=== PATIENT | male | born 1995 | race Caucasian/White ===

== ENCOUNTER 2016-11-06 16:56 | Emergency (ER) | payer BC ==
[~2016-11-06] VITALS: Ht 185.4 cm; Wt 97.4 kg
[2016-11-06] MEDS ORDERED: LORAZEPAM 2 MG/ML 1 ML VIAL IV STA (17:15)
[2016-11-06] MEDS ORDERED: SODIUM CHLORIDE 0.9% 1000ML 2,000 ML IV STA (17:15)
[2016-11-06 17:24] VITALS: TEMP 36.7; Ht 185.4 cm; Wt 97.4 kg
--- NOTE | 2016-11-06 17:52 | DIAGNOSTIC IMAGING REPORT ---
CHEST ONE VIEW PORTABLE CLINICAL HISTORY: Altered mental status. Weakness. COMPARISON STUDY: No previous studies for comparison. FINDINGS: Lung volumes are normal. Lungs are clear. There is no pneumothorax or pleural effusion. Cardiac size is normal. Mediastinal contours are normal. There is no evidence of pulmonary edema. IMPRESSION: No acute cardiopulmonary findings. Electronically signed by: Papo Zuleta M.D. 11/06/2016 5:51 PM Dictated Date/Time: 11/06/2016 5:51 PM
--- NOTE | 2016-11-06 18:01 | EMERGENCY ROOM VISIT NOTE ---
History Report prepared by Surya: Kayleigh Benrard Under the Supervision of: Dr. Zachary Messina M.D. First contact with patient: 17:09 Chief Complaint: SEIZURE Stated Complaint: SEIZURE History of Present Illness The patient is a 21 year old male who presents to the Emergency Room with complaints of an episode of seizure activity occurring just prior to arrival. The patient states that he has been very stressed lately from multiple exams this week at school and that he is very sleep deprived. The patient states that he took a hit of tobacco from a water pipe and got an immediate head duque. He does note he has been smoking tobacco for 3 years and has never had a side effect before. The patient states he stood up after smoking and felt everything slow down to be [id number]. He does have anxiety and notes this felt similar to an anxiety attack he has had in the past. The patient then walked into his friend's room and collapsed to the ground. He began to have seizure activity and did bite his tongue. After 1 minute the seizure activity stopped. He notes that he only remembers walking into his friend's room and then being put onto the stretcher by EMS. The patient has been drinking a lot of coffee and taking Adderall this week which is not his prescription. He notes that he does feel dehydrated. The patient notes that right before the seizure activity he experienced shortness of breath and lightheadedness. This has since resolved and he is currently experiencing nausea and left sided chest pain. The patient denies seizure activity before, family history of seizures, neck pain, or abdominal pain. 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 A total of 10 systems reviewed and were otherwise negative. Past Medical & Surgical Medical Problems: (1) Anxiety attack Family History Hypertension Social History Smoking Status: Light Tobacco Smoker Drug Use: marijuana Marital Status: single Housing Status: lives with roommate Occupation Status: [employer] student Allergies Coded Allergies: No Known Allergies (Unverified , 11/02/13) Physical Exam Vital Signs Date Time Temp Pulse Resp B/P Pulse Ox O2 Delivery O2 Flow Rate FiO2 11/06/16 20:51 92 18 156/81 98 Room Air 11/06/16 18:38 87 164/81 102 165/78 98 160/114 11/06/16 18:35 165/78 160/114 11/06/16 18:34 164/81 11/06/16 18:26 78 17 11/06/16 18:00 161/82 11/06/16 17:56 89 14 96 11/06/16 17:30 149/84 11/06/16 17:26 94 22 100 11/06/16 17:24 36.7 100 18 135/75 99 Room Air 11/06/16 17:07 96 11/06/16 17:02 135/75 Physical Exam GENERAL: Patient is in no acute distress. HEENT: No acute trauma, normocephalic atraumatic, mucous membranes moist, no nasal congestion, no scleral icterus. Dried blood on lips with subtle tongue bite on left side with no laceration repair required. NECK: No stridor, no adenopathy, no meningismus, trachea is midline. LUNGS: Clear to auscultation bilaterally, no wheeze, no rhonchi, breath sounds equal. HEART: Tachycardic with a regular rhythm no murmurs. CHEST: Tender to palpation to the left lateral chest wall. ABDOMEN: Soft, nontender, bowel sounds positive, no hernias, no peritonitis. EXTREMITIES: No cyanosis or edema, full range of motion of all the joints without pain or difficulty, no signs for acute trauma. NEUROLOGIC: Oriented x 3, no acute motor or sensory deficits, no focal weakness. SKIN: No rash, no jaundice, no diaphoresis. Medical Decision & Procedures ER Provider Diagnostic Interpretation: X ray results and stated below per my interpretation and radiologist interpretation. Other radiology results and stated below per my review and radiologist interpretation: CT OF THE HEAD WITHOUT CONTRAST CLINICAL HISTORY: Seizure. Altered mental status. COMPARISON STUDY: No previous studies for comparison. CT DOSE: 614.27 mGy.cm TECHNIQUE: Helical axial images of the head were obtained without IV contrast. Automated exposure control was utilized for the study. FINDINGS: No acute intracranial hemorrhage, midline shift or mass effect is present. Brain volume is normal. Ventricular system is normal. Basilar cisterns are patent. There are no extra-axial collections. Arizmendi-white differentiation is maintained. There are no findings to suggest acute dural sinus thrombosis or acute territorial infarct. There is no calvarial fracture. There are post surgical finding within the sinuses. IMPRESSION: No acute intracranial findings. Electronically signed by: Papo Zuleta M.D. 11/06/2016 7:28 PM Dictated Date/Time: 11/06/2016 7:24 PM CHEST ONE VIEW PORTABLE CLINICAL HISTORY: Altered mental status. Weakness. COMPARISON STUDY: No previous studies for comparison. FINDINGS: Lung volumes are normal. Lungs are clear. There is no pneumothorax or pleural effusion. Cardiac size is normal. Mediastinal contours are normal. There is no evidence of pulmonary edema. IMPRESSION: No acute cardiopulmonary findings. Electronically signed by: Papo Zuleta M.D. 11/06/2016 5:51 PM Dictated Date/Time: 11/06/2016 5:51 PM Laboratory Results 11/06/16 17:00 Red Blood Count 4.82, Mean Corpuscular Volume 93.2, Mean Corpuscular Hemoglobin 33.2, Mean Corpuscular Hemoglobin Concent 35.6, Mean Platelet Volume 10.0, Neutrophils (%) (Auto) 56.8, Lymphocytes (%) (Auto) 32.9, Monocytes (%) (Auto) 7.1, Eosinophils (%) (Auto) 1.6, Basophils (%) (Auto) 0.4, Neutrophils # (Auto) 5.24, Lymphocytes # (Auto) 3.04, Monocytes # (Auto) 0.66, Eosinophils # (Auto) 0.15, Basophils # (Auto) 0.04 11/06/16 17:00 Test 11/06/16 17:00 11/06/16 18:23 11/06/16 20:20 White Blood Count 9.24 K/uL (4.8-10.8) Red Blood Count 4.82 M/uL (4.7-6.1) Hemoglobin 16.0 g/dL (14.0-18.0) Hematocrit 44.9 % (42-52) Mean Corpuscular Volume 93.2 fL (80-100) Mean Corpuscular Hemoglobin 33.2 pg (25-34) Mean Corpuscular Hemoglobin Concent 35.6 g/dl (32-36) Platelet Count 251 K/uL (130-400) Mean Platelet Volume 10.0 fL (7.4-10.4) Neutrophils (%) (Auto) 56.8 % Lymphocytes (%) (Auto) 32.9 % Monocytes (%) (Auto) 7.1 % Eosinophils (%) (Auto) 1.6 % Basophils (%) (Auto) 0.4 % Neutrophils # (Auto) 5.24 K/uL (1.4-6.5) Lymphocytes # (Auto) 3.04 K/uL (1.2-3.4) Monocytes # (Auto) 0.66 K/uL (0.11-0.59) Eosinophils # (Auto) 0.15 K/uL (0-0.5) Basophils # (Auto) 0.04 K/uL (0-0.2) RDW Standard Deviation 42.8 fL (36.4-46.3) RDW Coefficient of Variation 12.6 % (11.5-14.5) Immature Granulocyte % (Auto) 1.2 % Immature Granulocyte # (Auto) 0.11 K/uL (0.00-0.02) Anion Gap 22.0 mmol/L (3-11) Est Creatinine Clear Calc Drug Dose 101.7 ml/min Estimated GFR () 82.1 Estimated GFR (Non- 70.8 BUN/Creatinine Ratio 8.7 (10-20) Calcium Level 9.1 mg/dl (8.5-10.1) Magnesium Level 2.4 mg/dl (1.8-2.4) Total Bilirubin 0.3 mg/dl (0.2-1) Aspartate Amino Transf (AST/SGOT) 27 U/L (15-37) Alanine Aminotransferase (ALT/SGPT) 36 U/L (12-78) Alkaline Phosphatase 89 U/L (45-117) Total Creatine Kinase 326 U/L (39-308) Troponin I < 0.015 ng/ml (0-0.045) Total Protein 8.1 gm/dl (6.4-8.2) Albumin 4.5 gm/dl (3.4-5.0) Globulin 3.6 gm/dl (2.5-4.0) Albumin/Globulin Ratio 1.3 (0.9-2) Thyroid Stimulating Hormone (TSH) 1.080 uIu/ml (0.300-4.500) Ethyl Alcohol mg/dL < 3.0 mg/dl (0-3) Urine Color YELLOW Urine Appearance CLEAR (CLEAR) Urine pH 6.0 (4.5-7.5) Urine Specific [place] 1.003 (1.000-1.030) Urine Protein NEG (NEG) Urine Glucose (UA) NEG (NEG) Urine Ketones TRACE (NEG) Urine Occult Blood NEG (NEG) Urine Nitrite NEG (NEG) Urine Bilirubin NEG (NEG) Urine Urobilinogen NEG (NEG) Urine Leukocyte Esterase NEG (NEG) Urine Opiates Screen NEG (NEG) Urine Methadone, Qualitative NEG (NEG) Urine Barbiturates NEG (NEG) Urine Phencyclidine (PCP) Level NEG (NEG) Ur Amphetamine/Methamphetamine NEG (NEG) MDMA (Ecstasy) Screen NEG (NEG) Urine Benzodiazepines Screen NEG (NEG) Urine Cocaine Metabolite NEG (NEG) Urine Marijuana (THC) NEG (NEG) Laboratory results reviewed by me. Medications Administered Medications (Trade) Dose Ordered Sig/Luz Route Start Time Stop Time Status Last Admin Dose Admin Sodium Chloride (Nss 1000ml) 2,000 ml @ 999 mls/hr Q2H1M STAT IV 11/06/16 17:15 11/06/16 19:15 DC 11/06/16 17:15 999 MLS/HR Lorazepam (Ativan Inj) 1 mg NOW STAT IV 11/06/16 17:15 11/06/16 17:21 DC 11/06/16 18:25 1 MG ECG Indication: other (seizure) Rate (beats per minute): 84 Rhythm: normal sinus Findings: no acute ischemic change, no ectopy, other (mild LVH) ED Course 1712: The patient was evaluated in room C5. A complete history and physical exam was performed. 1715: Ativan Inj 1 mg IV, Sodium Chloride 2,000 ml @ 999 mls/hr IV. 1855: Orthostatic vitals are negative. 2004: I spoke with Dr. Santiago Gutierrez Neurology about the patient. The patient does not need anti seizure medications. He is to follow up in the office and cannot drive. Patient is recommended to stop taking Adderall and to sleep properly. 2019: I reevaluated the patient. I spoke with him about following up with Dr. Santiago Gutierrez Neurology. 2028: Reevaluated the patient. Discussed results and discharge instructions: He verbalized understanding and agreement. The patient is ready for discharge. Medical Decision The patient is a 21 year old male who presents to the ED with complaints of seizure activity. Differential diagnoses considered include exhaustion, dehydration, elicit drug use, seizure, syncope with seizure, electrolyte imbalance, anemia, dysrhythmia, intracranial bleeding. There is no leukocytosis or concerning anemia. No significant electrolyte abnormality, kidney failure or hepatitis. EKG shows a normal sinus rhythm, no acute ischemia. Cardiac enzyme testing times one is not consistent with acute cardiac injury. Total CK is not elevated making rhabdomyolysis unlikely. Chest film shows no pneumonia, pneumothorax or CHF. Brain CT shows no acute bleed or mass effect. Orthostatic vital signs were negative. Urinalysis does not show infection. Urine tox is negative, alcohol level is undetectable. The patient appears to be in a euthyroid state. The patient was given IV Ativan and IV saline, he feels significantly better. I discussed this case with the on-call neurologist. The patient cannot drive, he is not in need of antiseizure medication but does need follow-up and eventual clearance to return to driving. The patient was told to avoid Adderall and any stimulants. He needs to sleep and be sure to get the proper amount of rest. The patient was encouraged to return for any return of symptoms. His event today may have been related to his recent increased stress , fatigue and stimulant use. Consults Time Called: 2001 Consulting Physician: Dr. Henderson - Neurology Returned Call: [address] Henderson - Neurology about the patient. The patient does not need anti seizure medications. He is to follow up in the office and cannot drive. Patient is recommended to stop taking Adderall and to sleep properly. Impression Primary Impression: Seizure-like activity Additional Impressions: Exhaustion Dehydration Scribe Attestation The scribe's documentation has been prepared under my direction and personally reviewed by me in its entirety. I confirm that the note above accurately reflects all work, treatment, procedures, and medical decision making performed by me. Departure Information Dispostion Home / Self-Care Referrals [facility] (PCP) Forms HOME CARE DOCUMENTATION FORM, IMPORTANT VISIT INFORMATION, School Instructions Patient Instructions My [facility] Additional Instructions proper sleep--8 hours per night no stimulants, heavy caffeine, energy drinks or Adderal stay well hydrated call and set up neurology appt--call in the am return if worsening tylenol for pain you cannot drive until given clearance by neurology Problem Qualifiers
[2016-11-06 18:10] LABS: BASO % 0.4 %; BASO ABS # 0.04 K/uL (0-0.2); COMPLETE YES; EOS % 1.6 %; HEMATOCRIT 44.9 % (42-52); IG% 1.2 %; LYMPH % 32.9 %; LYMPH ABS # 3.04 K/uL (1.2-3.4); MEAN CELL VOLUME 93.2 fL (80-100); MEAN CORPUSCULAR HEMOGLOBIN 33.2 pg (25-34); MEAN CORPUSCULAR HGB CONC 35.6 g/dl (32-36); MONO % 7.1 %; NEUT % 56.8 %; PLATELET COUNT 251 K/uL (130-400); RED BLOOD COUNT 4.82 M/uL (4.7-6.1); WHITE BLOOD COUNT 9.24 K/uL (4.8-10.8)
[2016-11-06 18:15] LABS: ALT/SGPT 36 U/L (12-78); BLOOD UREA NITROGEN 12 mg/dl (7-18); BUN/CREATININE RATIO 8.7 (10-20); CALCIUM 9.1 mg/dl (8.5-10.1); CARBON DIOXIDE 13 mmol/L (21-32); CHLORIDE 104 mmol/L (98-107); GLUCOSE 106 mg/dl (70-99); MAGNESIUM 2.4 mg/dl (1.8-2.4); POTASSIUM 3.8 mmol/L (3.5-5.1); SODIUM 139 mmol/L (136-145)
[2016-11-06 18:26] LABS: ALB/GLOB RATIO 1.3 (0.9-2); ALKALINE PHOSPHATASE 89 U/L (45-117); AST/SGOT 27 U/L (15-37)
--- NOTE | 2016-11-06 19:30 | DIAGNOSTIC IMAGING REPORT ---
CT OF THE HEAD WITHOUT CONTRAST CLINICAL HISTORY: Seizure. Altered mental status. COMPARISON STUDY: No previous studies for comparison. CT DOSE: 614.27 mGy.cm TECHNIQUE: Helical axial images of the head were obtained without IV contrast. Automated exposure control was utilized for the study. FINDINGS: No acute intracranial hemorrhage, midline shift or mass effect is present. Brain volume is normal. Ventricular system is normal. Basilar cisterns are patent. There are no extra-axial collections. Arizmendi-white differentiation is maintained. There are no findings to suggest acute dural sinus thrombosis or acute territorial infarct. There is no calvarial fracture. There are post surgical finding within the sinuses. IMPRESSION: No acute intracranial findings. Electronically signed by: Papo Zuleta M.D. 11/06/2016 7:28 PM Dictated Date/Time: 11/06/2016 7:24 PM
[2016-11-06 20:35] LABS: URINE APPEARANCE CLEAR (CLEAR); URINE BILIRUBIN NEG (NEG); URINE COLOR YELLOW; URINE NITRITE NEG (NEG); URINE SPECIFIC GRAVITY 1.003 (1.000-1.030); UROBILINOGEN NEG (NEG); ZZUR CULT IF INDIC CLEAN CATCH NO
[2016-11-06 20:36] LABS: MANUAL MICROSCOPIC REQUIRED? NO; REVIEW REQ? NO
[2016-11-06 20:51] VITALS: BP 156/81; PULSE 92; O2SAT 98
[2016-11-06 20:57] LABS: BENZODIAZEPINE, URINE NEG (NEG); COCAINE,URINE NEG (NEG); PHENCYCLIDINE, URINE NEG (NEG)
== END 2016-11-06 21:19 | disposition home or self-care (01) ==
LOC: EDBD 16:56 → C.EDC 16:57
DX: R56.9 Unspecified convulsions (principal); R53.83 Other fatigue; E86.0 Dehydration; F17.210 Nicotine dependence, cigarettes, uncomplicated; F12.10 Cannabis abuse, uncomplicated

== ENCOUNTER → 2016-12-12 | Outpatient (CLI) | payer BC ==
--- NOTE | 2016-12-12 15:18 | DIAGNOSTIC IMAGING REPORT ---
MRI OF THE BRAIN WITHOUT AND WITH IV CONTRAST SEIZURE PROTOCOL CLINICAL HISTORY: Seizure. COMPARISON STUDY: Head CT November 06, 2016. TECHNIQUE: Utilizing a 1.5 Sari magnet and dedicated coil, multiplanar, multiecho imaging of the brain was performed pre and postcontrast administration. IV administration of 8.6 mL of Gadavist contrast was uneventful. Thin cut coronal T2 imaging was performed according to seizure protocol. FINDINGS: There are no areas of restricted diffusion. No acute intracranial hemorrhage, midline shift or mass effect is present. Brain volume is normal. Ventricular system is normal. Basilar cisterns are patent. There are no extra-axial collections. Flow-voids for the major intracranial vessels are present. There are no intracranial masses or areas of pathologic enhancement. There is no evidence of govea matter heterotopia or mesial temporal sclerosis. Calvarium is normal. There is mild mucosal thickening of the ethmoid sinuses. Orbits are unremarkable. IMPRESSION: Normal MRI of the brain. Electronically signed by: Papo Zuleta M.D. 12/12/2016 3:17 PM Dictated Date/Time: 12/12/2016 3:13 PM
== END | disposition home or self-care (01) ==
LOC: C.MRIBC 14:09
PROVIDERS: ATTEND Physician Assistant
DX: R56.9 Unspecified convulsions (principal)

== ENCOUNTER → 2016-12-16 | Outpatient (CLI) | payer BC ==
[~2016-12-16] MED LIST: GADAVIST IV PRN
--- NOTE | 2016-12-17 10:28 | EEG Procedure Note ---
EEG Procedure Note Date of Service December 16, 2016. Start / End Times Start Time: 1:34pm End Time: 1:55pm Referring Physician LUIZA Zuniga History 21 year old male with seizure like activity. EEG for further eval of seizure etiology No home meds Description This is a 21 electrode EEG with a single channel dedicated to limited EKG. The electrodes were placed in accordance with the International 10-20 system. Intermittent lead artifact noted. At the start of the recording the patient was in an awake state. The background was well organized and composed of symmetric mixed alpha and beta frequencies. There was a well formed symmetric moderate amplitude posterior dominant rhythm of 10Hz that was reactive to eye opening and closure. Hyperventilation produced no abnormalities. Photic stimulation at various frequencies produced no abnormalities. Drowsiness was indicated by slowing of the background rhythm and loss of muscle artifact. There was no sleep transients. Interpretation This is a normal awake and drowsy routine EEG There was no electrographic seizures or epileptiform discharges. Clinical Correlation A normal EEG does not rule out epilepsy if there is a strong clinical suspicion.
== END | disposition home or self-care (01) ==
LOC: C.NEUR 13:19
PROVIDERS: ATTEND Physician Assistant
DX: R56.9 Unspecified convulsions (principal)